=== PATIENT | female | born 1965 | race Caucasian/White ===

== ENCOUNTER 2020-07-11 20:39 | Emergency (ER) | payer BC ==
[~2020-07-11] VITALS: Ht 170.2 cm; Wt 61.2 kg
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
--- NOTE | 2020-07-11 21:11 | NUR ---
BROUGHT TO CT
--- NOTE | 2020-07-11 21:50 | NUR ---
Patient discharged to home in stable condition. Written and verbal after care instructions given. Patient verbalizes understanding of instruction. Pt ambulatory with steady gait. vss.
[2020-07-11 21:52] VITALS: BP 142/76
== END 2020-07-11 21:52 | disposition home or self-care (01) ==
LOC: ER 20:42
DX: S00.03XA Contusion of scalp, initial encounter (principal); V49.59XA Passenger injured in collision with other motor vehicles in traffic accident, initial encounter; Y93.89 Activity, other specified; Y92.413 State road as the place of occurrence of the external cause; Y99.8 Other external cause status
CPT/HCPCS: 70450-TC